=== PATIENT | female | born 1935 | race Caucasian/White ===

== ENCOUNTER 2021-11-25 11:08 | Inpatient (IN) ==
[2021-11-25] MEDS: D5% in Lactated Ringers 1,000 ML IVC SCH ×2 (13:30→20:19)
[2021-11-25] MEDS ORDERED: Ondansetron 4 MG/2 ML VIAL IVP PRN (13:54)
[2021-11-25] MEDS ORDERED: Naloxone 0.4 MG/ML INJ IVP PRN (13:54)
[2021-11-25 14:14] LABS: Calcium 7.8 mg/dL (8.6-10.3); Potassium 3.9 mEq/L (3.5-5.1)
[2021-11-25] MEDS ORDERED: *HR* Heparin 5,000 UNIT/ML VIAL SQ SCH (18:00)
[2021-11-25] MEDS ORDERED: 0.9 % Sodium Chloride 1,000 ML ONE (18:35)
[2021-11-25] MEDS ORDERED: 0.9 % Sodium Chloride 1,000 ML IVC ONE (18:50)
[2021-11-25 18:54] LABS: Ferritin 21 ng/mL (10-120); Iron < 10 mcg/dL (50-170); Sodium 154 mEq/L (136-145); Transferrin 185 mg/dL (203-362)
[2021-11-25 19:45] LABS: Folate > 22.3 ng/mL (3.0-16.0); Vitamin B12 894 pg/mL (250-1100)
[2021-11-25] MEDS ORDERED: Piperacillin/Tazobactam 3.375 GM in 0.9 % Sodium Chloride Mini Bag 100 ML IVPB SCH (20:00)
[2021-11-25 20:06] LABS: Hematocrit 24.4 % (35.3-44.9); Hemoglobin 6.7 g/dL (11.5-15.4); Immature Platelets 4.5 % (1.1-6.1); Mean Corpuscular HGB Conc 27.5 g/dL (31.6-35.5); Mean Corpuscular Hemoglobin 17.3 pg (28.0-33.3); Mean Platelet Volume 9.9 fL (9.4-12.4); Nucleated Red Blood Cells 1.2 /100 WBC (0); Platelet Count 160 K/mcL (140-400); Red Blood Count 3.87 M/mcL (3.82-4.97); White Blood Count 24.5 K/mcL (4.3-11.1)
[2021-11-25] MEDS ORDERED: *HR* Dextrose 50 % in Water (Syg) 50 ML SYRINGE IVP PRN (20:15)
[2021-11-25] MEDS ORDERED: D5% in Water 1,000 ML IVC PRN (20:15)
[2021-11-25] MEDS ORDERED: Dextrose Gel 15 GM/37.5 ML TUBE PO PRN ×2 (20:15)
[2021-11-25 20:31] LABS: Lymphocytes # 1.5 K/mcL (0.6-4.6)
[2021-11-25 20:32] LABS: Hypochromasia Present (Not Present); Microcytosis Present (Not Present)
[2021-11-25 20:33] LABS: Anisocytosis 3+ (Not Present); Polychromasia 1+ (Not Present)
[2021-11-25 20:56] LABS: BUN/Creatinine Ratio 26 (6-26); Blood Urea Nitrogen 70 mg/dL (8-23); Carbon Dioxide 15 mEq/L (23-29); Chloride 125 mEq/L (98-107); Glucose 151 mg/dL (70-105); Osmolality,Calculated 341 (280-300); Potassium 3.5 mEq/L (3.5-5.1)
[2021-11-25] MEDS ORDERED: Albumin 25% 25gram/100mL 25 GM/100 ML IV.SOLN IVPB ONE (21:14)
[2021-11-25] MEDS ORDERED: 0.9 % Sodium Chloride 1,000 ML IV ONE (21:34)
[2021-11-25 21:53] LABS: Alanine Aminotransferase 9 Units/L (7-52); Albumin 2.6 g/dL (3.5-5.7); Albumin/Globulin Ratio 1.1 (1.1-2.2); Alkaline Phosphatase 81 Units/L (34-104); Aspartate Amino Transferase 21 Units/L (13-39); Bilirubin,Direct 0.5 mg/dL (0.0-0.2); Bilirubin,Indirect 1.2 mg/dL (0.0-1.0); Bilirubin,Total 1.7 mg/dL (0.3-1.0); Globulin 2.4 g/dL (2.4-3.5)
[2021-11-25] MEDS ORDERED: Pantoprazole 40 MG VIAL IVP ONE (23:03)
[2021-11-25] MEDS ORDERED: 0.9 % Sodium Chloride 250 ML ONE (23:09)
[2021-11-26 00:45] LABS: Bilirubin,Urine Negative (Negative); Blood,Urine Moderate (Negative); Clarity,Urine Turbid (Clear); Color,Urine Light-Orange (Yellow); Glucose,Urine (UA) Normal (Normal); Hyaline Casts,Urine Few per lpf (None Seen); Ketones,Urine Negative (Negative); Leukocyte Esterase,Urine Trace (Negative); Mucus,Urine Few per lpf (None-Few); Nitrite,Urine Negative (Negative); PH,Urine 5.5 pH Units (5.0-8.0); Protein,Urine 30 mg/dL (Neg-Trace); RBC,Urine 30-50 per hpf (0-3); Specific Gravity,Urine 1.021 (1.010-1.025); Squamous Epithelial Cell,Urine Few per hpf (None-Few); Urobilinogen,Urine Normal (Normal)
[2021-11-26] MEDS ORDERED: 0.9 % Sodium Chloride 250 ML ONE (02:54)
[2021-11-26 05:46] LABS: C.difficile Toxin A/B Gene PCR Not detected (Not detect); Campylobacter by PCR Not detected (Not detect); Enteroaggregative E.coli(EAEC) Not detected (Not detect); Enteropathogenic E.coli(EPEC) Not detected (Not detect); Enterotoxigenic E.coli (ETEC) Not detected (Not detect); Plesiomonas shigelloides PCR Not detected (Not detect); Salmonella PCR Not detected (Not detect); Shigalike tox-prod E coli STEC Not detected (Not detect); Vibrio PCR Not detected (Not detect); Vibrio cholerae PCR Not detected (Not detect); Yersinia enterocolitica PCR Not detected (Not detect)
[2021-11-26 05:47] LABS: Adenovirus F 40/41 PCR Not detected (Not detect); Astrovirus PCR Not detected (Not detect); Cryptosporidium by PCR Not detected (Not detect); Cyclospora cayetanensis PCR Not detected (Not detect); Entamoeba histolytica PCR Not detected (Not detect); Giardia lamblia PCR Not detected (Not detect); Norovirus GI/GII PCR Not detected (Not detect); Rotavirus A PCR Not detected (Not detect); Sapovirus PCR Not detected (Not detect); Shig/EnteroinvasiveE coli EIEC Not detected (Not detect)
[2021-11-26] MEDS: MetroNIDAZOLE 500 MG/100 ML 500 MG/100 ML BAG IVPB SCH ×3 (06:01→18:05)
[2021-11-26] MEDS: Pantoprazole 40 MG VIAL IVP SCH ×2 (06:37→18:05)
[2021-11-26 07:18] LABS: Calcium 7.6 mg/dL (8.6-10.3); Magnesium 2.2 mg/dL (1.6-2.6); Potassium 3.4 mEq/L (3.5-5.1)
[2021-11-26] MEDS ORDERED: D5% in Water 1,000 ML IVC SCH (08:15)
[2021-11-26 08:51] LABS: Hemoglobin 10.4 g/dL (11.5-15.4); Mean Corpuscular Volume 70.3 fL (83.0-100.0); Nucleated Red Blood Cells 0.4 /100 WBC (0)
[2021-11-26 08:53] LABS: Hematocrit 33.9 % (35.3-44.9); Immature Platelets 3.7 % (1.1-6.1); Mean Corpuscular HGB Conc 30.7 g/dL (31.6-35.5); Mean Corpuscular Hemoglobin 21.6 pg (28.0-33.3); Platelet Count 135 K/mcL (140-400); Red Blood Count 4.82 M/mcL (3.82-4.97); Red Cell Distribution Width 28.6 % (11.5-14.5)
[2021-11-26 09:06] LABS: Calcium 7.6 mg/dL (8.6-10.3); Potassium 3.3 mEq/L (3.5-5.1)
[2021-11-26 09:35] LABS: Lymphocytes # 1.6 K/mcL (0.6-4.6); Monocytes # 1.6 K/mcL (0.0-1.3); Neutrophils # 16.8 K/mcL (1.6-8.9); Platelet Estimate Normal (Normal)
[2021-11-26 13:53] LABS: Hematocrit 32.1 % (35.3-44.9); Hemoglobin 10.1 g/dL (11.5-15.4)
[2021-11-26 14:10] LABS: Calcium 7.6 mg/dL (8.6-10.3)
[2021-11-26 14:12] LABS: Calcium 7.6 mg/dL (8.6-10.3)
[2021-11-26 17:02] LABS: Calcium 7.7 mg/dL (8.6-10.3)
[2021-11-26 21:29] LABS: Calcium 7.6 mg/dL (8.6-10.3); Potassium 2.8 mEq/L (3.5-5.1)
[2021-11-27] MEDS: MetroNIDAZOLE 500 MG/100 ML 500 MG/100 ML BAG IVPB SCH ×3 (00:23→17:05)
[2021-11-27] MEDS: Pantoprazole 40 MG VIAL IVP SCH ×2 (05:29→17:06)
[2021-11-27 07:06] LABS: Hemoglobin 10.1 g/dL (11.5-15.4); Nucleated Red Blood Cells 0.2 /100 WBC (0); Red Cell Distribution Width 28.8 % (11.5-14.5)
[2021-11-27 07:08] LABS: Hematocrit 33.4 % (35.3-44.9); Immature Platelets 4.5 % (1.1-6.1); Mean Corpuscular HGB Conc 30.2 g/dL (31.6-35.5); Mean Corpuscular Hemoglobin 21.5 pg (28.0-33.3); Mean Corpuscular Volume 71.1 fL (83.0-100.0); Platelet Count 117 K/mcL (140-400); White Blood Count 18.8 K/mcL (4.3-11.1)
[2021-11-27 08:04] LABS: Anisocytosis 3+ (Not Present); Hypochromasia Present (Not Present); Lymphocytes # 0.4 K/mcL (0.6-4.6); Microcytosis Present (Not Present); Monocytes # 0.2 K/mcL (0.0-1.3); Neutrophils # 18.2 K/mcL (1.6-8.9); Poikilocytosis 2+ (Not Present)
[2021-11-27 08:06] LABS: Burr Cells 1+ (Not Present)
[2021-11-27 08:09] LABS: Platelet Clumps Few (Not Present); Platelet Estimate Decreased (Normal)
[2021-11-27 13:14] LABS: Calcium 7.9 mg/dL (8.6-10.3); Potassium 3.9 mEq/L (3.5-5.1)
[2021-11-27] MEDS ORDERED: Acetaminophen IV 500 MG/50 ML BAG IVPB ONE (13:58)
[2021-11-27] MEDS: D5% in Water 1,000 ML IVC SCH (17:11)
[2021-11-27] MEDS ORDERED: Haloperidol Lactate 5 MG/ML VIAL IVP ONE (17:17)
[2021-11-27] MEDS ORDERED: Haloperidol Lactate 5 MG/ML VIAL IVP PRN (19:04)
[2021-11-28] MEDS ORDERED: Ziprasidone 5 MG, Closed System Device IM Kit 1 EACH in Water for inj. (sterile) 0.5 ML IM PRN
[2021-11-28] MEDS: MetroNIDAZOLE 500 MG/100 ML 500 MG/100 ML BAG IVPB SCH ×3 (00:21→16:26)
[2021-11-28] MEDS ORDERED: RisperiDONE MICROSPHERES 25 MG/2 ML SYRINGE IM ONE (00:30)
[2021-11-28] MEDS ORDERED: Haloperidol Lactate 5 MG/ML VIAL IVP PRN (00:34)
[2021-11-28 02:07] LABS: Basophils % 0.2 %; Eosinophils % 0.2 %; Hematocrit 32.7 % (35.3-44.9); Immature Granulocytes % 0.7 % (0-4); Immature Platelets 4.1 % (1.1-6.1); Lymphocytes # 0.9 K/mcL (0.6-4.6); Lymphocytes % 5.1 %; Mean Corpuscular HGB Conc 30.6 g/dL (31.6-35.5); Mean Corpuscular Hemoglobin 21.7 pg (28.0-33.3); Mean Corpuscular Volume 70.9 fL (83.0-100.0); Monocytes # 0.4 K/mcL (0.0-1.3); Monocytes % 2.5 %; Neutrophils # 15.9 K/mcL (1.6-8.9); Nucleated Red Blood Cells 0.1 /100 WBC (0); Red Blood Count 4.61 M/mcL (3.82-4.97); Red Cell Distribution Width 29.5 % (11.5-14.5); Segmented Neutrophils % 91.3 %; White Blood Count 17.4 K/mcL (4.3-11.1)
[2021-11-28 02:10] LABS: Platelet Count 95 K/mcL (140-400)
[2021-11-28 02:21] LABS: Calcium 7.8 mg/dL (8.6-10.3)
[2021-11-28] MEDS: Pantoprazole 40 MG VIAL IVP SCH ×2 (06:14→18:33)
[2021-11-28] MEDS ORDERED: D5% in Water 1,000 ML IVC SCH (08:15)
[2021-11-28] MEDS ORDERED: E-Z-HD (BARIUM SULF) SUSPENSION PO ONE (10:32)
[2021-11-28] MEDS ORDERED: E-Z-PAQUE (BARIUM SULF) SUSP 1 BOTTLE PO ONE (10:32)
[2021-11-28] MEDS: D5% in Water 1,000 ML IVC SCH ×2 (14:40→19:41)
[2021-11-28] MEDS: QUEtiapine Fumarate 25 MG TABLET PO SCH (20:11)
[2021-11-29] MEDS: MetroNIDAZOLE 500 MG/100 ML 500 MG/100 ML BAG IVPB SCH (00:59)
[2021-11-29] MEDS: D5% in Water 1,000 ML IVC SCH (01:00)
[2021-11-29] MEDS ORDERED: *HR* LORazepam 0.5 MG TABLET SL PRN (01:06)
[2021-11-29] MEDS ORDERED: Atropine Sulfate 1% 40 DROP/2 ML BOTTLE SL PRN (01:13)
[2021-11-29] MEDS: Pantoprazole 40 MG VIAL IVP SCH (04:50)
[2021-11-29 15:51] LABS: Adenovirus Not Detected (Not Detect); Coronavirus 229E Not Detected (Not Detect); Coronavirus HKU1 Not Detected (Not Detect); Coronavirus NL63 Not Detected (Not Detect); Coronavirus OC43 Not Detected (Not Detect)
[2021-11-29 16:01] LABS: Bordetella Pertussis Not Detected (Not Detect); Chlamydophila pneumoniae Not Detected (Not Detect); Human Metapneumovirus Not Detected (Not Detect); Human Rhinovirus/Enterovirus Not Detected (Not Detect); Influenza A Subtype 2009 H1 Not Detected (Not Detect); Influenza B Not Detected (Not Detect); Mycoplasma pneumoniae Not Detected (Not Detect); Parainfluenza Virus 1 Not Detected (Not Detect); Parainfluenza Virus 2 Not Detected (Not Detect); Parainfluenza Virus 3 Not Detected (Not Detect); Parainfluenza Virus 4 Not Detected (Not Detect); Respiratory Syncytial Virus Not Detected (Not Detect); SARS-CoV-2 DETECTED (Not Detect)
[2021-11-29] MEDS: QUEtiapine Fumarate 25 MG TABLET PO SCH (20:20)
[2021-11-30 10:19] VITALS: PULSE 82; TEMP 98.4; O2SAT 95
[2021-11-30 10:31] VITALS: BP 114/60
[2021-11-30] MEDS ORDERED: *HR* LORazepam Oral Conc 2 MG/ML PO PRN (10:48)
== END 2021-11-30 13:49 | disposition expired | DRG 682 ==
LOC: 2NNU → SUATTDRO 13:54 → 2ANU 11-29 10:11
PROVIDERS: ADMIT Hospitalist; ATTEND Student in an Organized Health Care Education/Training Program